=== PATIENT | female | born 1990 | race Caucasian/White ===

== ENCOUNTER 2017-11-12 08:07 | Emergency (ER) | payer OTHER ==
[2017-11-12 08:22] VITALS: O2SAT 100
--- NOTE | 2017-11-12 08:35 | C.PDOC ---
History Of Present Illness WORSENING VB, CRAMPING ONSET PROBATION AND PAROLE OFFICER. PS SAW OBGYN @ [facility], S/P US 11/10. . PS W SEV DAYS OF SPOTTING, US @ 11 WKS "AND THEY SAID NO HEARTRATE". WAS GIVEN RX FOR CYTOTEC "TO TAKE WHENEVER I WANT" AND JANELL BUT PS HAS NOT TAKEN CYTOTEC YET. PS WAS SUPPOSED TO HAVE A D&C "BUT THEY SAID THERE WAS NO SPACE IN O.R.". INCR VAG BLEEDING, +"HEAVY CLOT" POSSIBLE TISSUED PROBATION AND PAROLE OFFICER. CO RESIDUAL CRAMPING. DENIES RECENT ILLNESS EXAM NONTOXIC HEENT NO PALLOR ABD NEG +VAG BLEED IN VAULT, NO CLOTS/TISSUE. OS OPEN GOOD PERFUSION WARM CV RRR SP JANELL @ 0645. DOES NOT WISH ADDL PAIN RX @ THIS TIME Time Seen by Provider: 11/12/17 08:14 History Per: Patient History/Exam Limitations: no limitations Onset/Duration Of Symptoms: Sudden Onset (PROBATION AND PAROLE OFFICER) Current Symptoms Are (Timing): Still Present Past Medical History Reviewed: Historical Data, Nursing Documentation, Vital Signs Vital Signs: Last Vital Signs Temp 97.9 F 11/12/17 08:17 Pulse 73 11/12/17 08:17 Resp 16 11/12/17 08:17 BP 138/86 11/12/17 08:17 Pulse Ox 100 11/12/17 11:29 - Medical History PMH: Hypothyroidism Family History: States: No Known Family Hx - Social History Hx Alcohol Use: No Hx Substance Use: No - Immunization History Hx Tetanus Toxoid Vaccination: No Hx Influenza Vaccination: Yes (2016) Hx Pneumococcal Vaccination: No Review Of Systems Except As Marked, All Systems Reviewed And Found Negative. Constitutional: Negative for: Fever, Chills Cardiovascular: Negative for: Chest Pain Respiratory: Negative for: Shortness of Breath Gastrointestinal: Positive for: Abdominal Pain (cramping). Negative for: Nausea , Vomiting Genitourinary: Positive for: Vaginal Bleeding. Negative for: Dysuria Neurological: Negative for: Weakness, Numbness Physical Exam - Physical Exam Appears: Non-toxic, No Acute Distress Skin: Warm, Dry, No Pale, No Rash Head: Atraumatic, Normacephalic Eye(s): bilateral: Normal Inspection, PERRL, EOMI, Other (No palor) Oral Mucosa: Moist Tongue: Normal Appearing Cardiovascular: Rhythm Regular, No Murmur Respiratory: Normal Breath Sounds Gastrointestinal/Abdominal: Normal Exam, Soft, No Tenderness, No Guarding, No Rebound Pelvic: Vaginal Bleeding (in valult), No Cervical Motion Tenderness, Other (No clots/tissue) Extremity: Normal ROM, No Swelling Neurological/Psych: Oriented x3, Normal Speech, Normal Motor ED Course And Treatment - Laboratory Results Result Diagrams: 11/12/17 09:37 11/12/17 09:37 O2 Sat by Pulse Oximetry: 100 (RA) Pulse Ox Interpretation: Normal - CT Scan/US US - Transvaginal Other Rad Studies (CT/US): Read By Radiologist, Radiology Report Reviewed (D/W DR PEDRAZA NO RETAINED POC, ECTOPIC) CT/US Interpretation: HISTORY: VAG BLEED RO RPOC/ECTOPIC. LMP 08/15/2017. Beta HCG results: 1990. COMPARISON: None available. TECHNIQUE: Transabdominal, transvaginal. Real -time technique with 2D, duplex and color Doppler. FINDINGS: UTERUS: Measures 6 x 7.2 x 8.8 cm. Normal in size and appearance. No fibroid or other mass lesion seen. ENDOMETRIUM: Measures 11.8 mm in diameter. No ultrasound findings to suggest gestational sac, fluid, debris , mass or polyp or other pathologic process within the endometrium. CERVIX: No cervical abnormality identified. RIGHT OVARY: Measures 2.2 x 3.1 x 4.4 cm. No solid mass. Normal flow. Simple cysts (2) measuring 8 x 11 mm and 2.5 x 2.1 cm. LEFT OVARY: Measures 1.8 x 2.3 x 2.8 cm. No solid mass. Normal flow. FREE FLUID: No significant free fluid noted. OTHER FINDINGS: None. IMPRESSION: Unremarkable pelvic ultrasound. PROCEDURE: No visible intrauterine gestation. Mild thickening in the endometrium. Unremarkable left adnexa. Two simple cysts right adnexa. Communication of results: I discussed the findings directly with the attending physician in the emergency department Dr. Gomes at the time of this interpretation (11:28). Medical Decision Making Medical Decision Making: PLAN: * US - Transvaginal, Pelvis * CBC * BMP * Urinalysis * Beta Quant * Sodium Chloride IV NOTE: * Patient is sp Janell @ 0645. Does not wish for additional pain medications at this time. Disposition Counseled Patient/Family Regarding: Studies Performed, Diagnosis, Need For Followup, Rx Given - Disposition Referrals: YOUR,OBGYN [Other] Disposition: HOME/ ROUTINE Disposition Time: 11:29 Condition: GOOD Additional Instructions: FOLLOW UP WITH YOUR OBGYN THIS WEEK Instructions: Spontaneous Miscarriage (ED) - Clinical Impression Clinical Impression: Complete miscarriage - Scribe Statement The provider has reviewed the documentation as recorded by the Shelbiiblydia Raza Provider Attestation: All medical record entries made by the Kiara were at my direction and personally dictated by me. I have reviewed the chart and agree that the record accurately reflects my personal performance of the history, physical exam, medical decision making, and the department course for this patient. I have also personally directed, reviewed, and agree with the discharge instructions and disposition.
[2017-11-12 09:04] LABS: SQUAMOUS EPITHIAL 1 /hpf (0-5); URINE BACTERIA RARE (<OCC); URINE BILIRUBIN NEGATIVE (NEGATIVE); URINE BLOOD 3+ (NEGATIVE); URINE CLARITY Hazy (Clear); URINE COLOR Yellow (YELLOW); URINE GLUCOSE (UA) NORMAL (Normal); URINE LEUKOCYTE ESTERASE NEG Leu/uL (Negative); URINE NITRATE NEGATIVE (NEGATIVE); URINE PROTEIN 2+ mg/dL (NEGATIVE); URINE UROBILINOGEN NORMAL mg/dL (0.2-1.0)
[2017-11-12] MEDS ORDERED: Sodium Chloride 0.9% 1,000 ML IV ONE (09:09)
[2017-11-12] MEDS ORDERED: Sodium Chloride 0.9% 1,000 ML ONE (09:37)
[2017-11-12 09:40] LABS: BASO % 0.2 % (0.0-2.0); EOS % 0.1 % (0.0-4.0); HEMOGLOBIN 13.3 g/dL (11.0-16.0); LYMPH # 1.3 K/uL (1.0-4.3); LYMPH % 8.3 % (20.0-40.0); MEAN CORPUSCULAR HEMOGLOBIN 29.8 pg (27.0-31.0); MEAN CORPUSCULAR HGB CONC 34.3 g/dL (33.0-37.0); MEAN PLATELET VOLUME 9.3 fL (7.2-11.7); MONO # 0.8 K/uL (0.0-0.8); MONO % 4.9 % (0.0-10.0); NEUT # 13.4 K/uL (1.8-7.0); NEUT % 86.5 % (50.0-75.0); PLATELET COUNT 242 K/uL (130-400); RBC 4.47 Mil/uL (3.80-5.20); RED CELL DISTRIBUTION WIDTH 13.5 % (11.5-14.5); WHITE BLOOD COUNT 15.5 K/uL (4.8-10.8)
[2017-11-12 09:52] LABS: BLOOD UREA NITROGEN 6 mg/dL (7-17); CALCIUM 9.3 mg/dl (8.6-10.4); GFR AFRICAN-AMERICAN > 60; GFR NON-AFRICAN AMERICAN > 60
[2017-11-12 10:27] LABS: BANDS 1 % (0-2); LYMPHOCYTE 5 % (20-40); MONOCYTE 3 % (0-10); NEUTROPHIL 90 % (50-75); REACTIVE LYMPHOCYTES 1 % (0-0); TOTAL CELLS COUNTED 100
[2017-11-12 10:28] LABS: ANISOCYTOSIS SLIGHT; LARGE PLATELETS PRESENT; PLATELET ESTIMATE NORMAL (NORMAL)
--- NOTE | 2017-11-12 11:32 | US ---
HISTORY: VAG BLEED RO RPOC/ECTOPIC LMP 08/15/2017. Beta HCG results: 1990. COMPARISON: None available. TECHNIQUE: Transabdominal, transvaginal. Real -time technique with 2D, duplex and color Doppler. FINDINGS: UTERUS: Measures 6 x 7.2 x 8.8 cm. Normal in size and appearance. No fibroid or other mass lesion seen. ENDOMETRIUM: Measures 11.8 mm in diameter. No ultrasound findings to suggest gestational sac, fluid, debris, mass or polyp or other pathologic process within the endometrium. CERVIX: No cervical abnormality identified. RIGHT OVARY: Measures 2.2 x 3.1 x 4.4 cm. No solid mass. Normal flow. Simple cysts (2) measuring 8 x 11 mm and 2.5 x 2.1 cm. LEFT OVARY: Measures 1.8 x 2.3 x 2.8 cm. No solid mass. Normal flow. FREE FLUID: No significant free fluid noted. OTHER FINDINGS: None. IMPRESSION: Unremarkable pelvic ultrasound. PROCEDURE: No visible intrauterine gestation. Mild thickening in the endometrium. Unremarkable left adnexa. Two simple cysts right adnexa. Communication of results: I discussed the findings directly with the attending physician in the emergency department Dr. Gomes at the time of this interpretation (11:28).
[2017-11-12 11:56] VITALS: BP 122/84; PULSE 76; RESP 18; TEMP 97.7
== END 2017-11-12 12:03 | disposition home or self-care (01) ==
LOC: C.ER 08:07
DX: O03.9 Complete or unspecified spontaneous abortion without complication (principal); Z3A.11 11 weeks gestation of pregnancy; E03.9 Hypothyroidism, unspecified
CPT/HCPCS: 76830; 76856; 80048; 81001; 84702; 85025; 86850; 86900; 96360; 99284; J7040